=== PATIENT | male | born 1985 | race Caucasian/White ===

== ENCOUNTER → 2021-11-26 | Day surgery (SDC) | payer OTHER ==
[~2021-11-26] MED LIST: BUPIVACAINE MPF 0.25% 30 ML VIAL. ONE; LIDOCAINE 1% PF 30 ML VIAL. ONE; SERT50TA PO; fish oil PO
[2021-11-26 14:03] VITALS: BP 124/92
== END | disposition home or self-care (01) ==
LOC: SURG 12:59
PROVIDERS: ATTEND Anesthesiology
DX: M47.816 Spondylosis without myelopathy or radiculopathy, lumbar region (principal); M51.36 Other intervertebral disc degeneration, lumbar region; M79.10 Myalgia, unspecified site; Z88.0 Allergy status to penicillin; Z79.899 Other long term (current) drug therapy; Z98.890 Other specified postprocedural states
CPT/HCPCS: 64493; 64494; A4209; A4657; A4930; J3490